=== PATIENT | male | born 1975 | race Caucasian/White ===

== ENCOUNTER 2022-01-15 01:13 | Emergency (ER) | payer SELFPAY ==
[~2022-01-15] VITALS: Ht 172.7 cm; Wt 74.8 kg
[2022-01-15 01:13] VITALS: BP 145/109
[2022-01-15] MEDS ORDERED: LIDOCAINE MPF 1% 10 MG/ML VIAL INJ ONE (01:40)
--- NOTE | 2022-01-15 03:38 | NUR ---
PATIENT BIB [facility] POLICE DEPT. PATIENT EXAMINED BY DR. BOYCE. PATIENT MEDICALLY CLEARED AND RELEASED IN CUSTODY IN STABLE CONDITION. ORIGINAL PRE-BOOK FORM GIVEN TO OFFICER ARACELI, #[id number].
== END 2022-01-15 03:30 ==
LOC: MED 01:13
DX: S61.411A Laceration without foreign body of right hand, initial encounter (principal); Z02.89 Encounter for other administrative examinations; V89.2XXA Person injured in unspecified motor-vehicle accident, traffic, initial encounter; Y93.89 Activity, other specified; Y92.89 Other specified places as the place of occurrence of the external cause; Y99.8 Other external cause status
CPT/HCPCS: 12002; 73130; 90471; 90715; 99283; J2001